=== PATIENT | female | born 1995 | race Caucasian/White ===

== ENCOUNTER → 2018-10-27 | Outpatient (CLI) | payer MEDICAID ==
--- NOTE | 2018-10-27 19:11 | Diagnostic Imaging Report ---
INDICATION: Low back pain. EXAMINATION: Lumbar spine. FINDINGS: AP and lateral views of the lumbar spine show normal vertebral body height and alignment. Disc spaces are normal. IMPRESSION: Negative lumbar spine. Dictated by: Dictated on workstation # [id number]
== END ==
LOC: RAD FS 16:24
PROVIDERS: ATTEND Family Medicine
DX: M54.5 Low back pain (principal)
CPT/HCPCS: 72100

== ENCOUNTER 2020-05-13 08:54 | Emergency (ER) | payer MEDICAID, OTHER ==
--- NOTE | 2020-05-13 08:56 | ED General ---
General Stated Complaint: LWR BACK PAIN; N/V Source of Information: Patient History of Present Illness Date Seen by Provider: May 13, 2020 Time Seen by Provider: 08:56 Initial Comments Patient is a 24-year-old female who comes to the emergency department complaining of right lower back pain. She's had symptoms over the last 2-3 days. She did not have any inciting event or traumatic injury. No recent strenuous activity. Pain is located over the right side of the low back. No numbness or tingling down the legs. No weakness. No radiation of pain symptoms. Pain is worse when she moves and relieved by rest. No difficulties with elimination. Denies urinary symptoms. Her last menstrual cycle ended 4 days earlier. No recent fever. Allergies and Home Medications Allergies Coded Allergies: amoxicillin (Verified Allergy, Unknown, 05/13/20) codeine (Verified Allergy, Unknown, 05/13/20) Home Medications Cyclobenzaprine HCl 10 Mg Tablet, 10 MG PO TID Prescribed by: LUCIANA GUY on 05/13/20916 Ibuprofen 800 Mg Tablet, 800 MG PO Q8H PRN for PAIN-MILD Prescribed by: LUCIANA GUY on 05/13/20916 Nitrofurantoin Monohyd/M-Cryst 100 Mg Capsule, 1 TAB PO BID Prescribed by: LUCIANA GUY on 05/13/20 0939 Patient Home Medication List Home Medication List Reviewed: Yes Review of Systems Review of Systems Constitutional: no symptoms reported EENTM: no symptoms reported Respiratory: no symptoms reported Cardiovascular: no symptoms reported Gastrointestinal: no symptoms reported Musculoskeletal: see HPI, back pain Skin: no symptoms reported All Other Systems Reviewed Negative Unless Noted: Yes Physical Exam Vital Signs Vital Signs - First Documented 05/13/20 09:05 Temp 36.7 Pulse 129 Resp 16 B/P (MAP) 123/72 (89) Pulse Ox 99 O2 Delivery Room Air Capillary Refill : Height, Weight, BMI Height: '" Weight: lbs. oz. kg; BMI Method: General Appearance: No Apparent Distress, WD/WN Neck: Non Tender, Supple Respiratory: Lungs Clear, Normal Breath Sounds Cardiovascular: Regular Rate, Rhythm, No Murmur Back: Other (muscle spasm and tenderness to palpation over the right lumbar paraspinal muscles and lower thoracic paraspinal muscles, 5 over 5 motor strength bilateral lower extremities. 2 over 4 DTRs at Achilles level) Extremity: Normal Capillary Refill Neurologic/Psychiatric: Alert, Oriented x3 Skin: Normal Color Progress/Results/Core Measures Suspected Sepsis SIRS Temperature: Pulse: Respiratory Rate: Blood Pressure / Mean: Results/Orders Lab Results Laboratory Tests Test 05/13/20 09:00 Range/Units Urine Color YELLOW Urine Clarity CLOUDY Urine pH 6.0 5-9 Urine Specific [place] >1.030 1.016-1.022 Urine Protein 2+ H NEGATIVE Urine Glucose (UA) NEGATIVE NEGATIVE Urine Ketones NEGATIVE NEGATIVE Urine Nitrite POSITIVE H NEGATIVE Urine Bilirubin NEGATIVE NEGATIVE Urine Urobilinogen 1.0 < = 1.0 MG/DL Urine Leukocyte Esterase 1+ H NEGATIVE Urine RBC (Auto) 1+ H NEGATIVE Urine RBC 2-5 H /HPF Urine WBC >100 H /HPF Urine Squamous Epithelial Cells 2-5 /HPF Urine Crystals NONE /LPF Urine Bacteria MODERATE H /HPF Urine Casts NONE /LPF Urine Mucus SMALL H /LPF Urine Culture Indicated YES My Orders Orders - LUCIANA GUY DO Urinalysis (05/13/20 09:00) Hcg,Qualitative Urine (05/13/20 09:00) Urine Culture (05/13/20 09:00) Vital Signs/I&O 05/13/20 09:05 Temp 36.7 Pulse 129 Resp 16 B/P (MAP) 123/72 (89) Pulse Ox 99 O2 Delivery Room Air Capillary Refill : Progress Note : Time: 09:14 Progress Note Patient is evaluated on arrival to her room. She has strain of the right lumbar back. No red flags are present in her history of present illness or with her physical examination. Today, we will check urinalysis and urine . 09:40: Prior to discharge from the ER, the patient's urinalysis did return with nitrite positive urinary tract infection. This was explained to her. She does not have fever. She denies urinary symptoms. She is placed on Macrobid. She is given some Flexeril and Motrin for treatment of her pain symptoms at home. Return precautions discussed and she will come back to the ER if she develops any new or worsening symptoms. Departure Impression Primary Impression: Lumbar spine strain Additional Impression: Urinary tract infection Disposition: 01 HOME, SELF-CARE Condition: Improved Departure-Patient Inst. Scripts Nitrofurantoin Monohyd/M-Cryst (Macrobid 100 mg Capsule) 100 Mg Capsule 1 TAB PO BID for 7 Days, #14 TAB Prov: LUCIANA GUY DO 05/13/20 Ibuprofen (Ibuprofen) 800 Mg Tablet 800 MG PO Q8H PRN for PAIN-MILD, #21 TAB Prov: LUCIANA GUY DO 05/13/20 Cyclobenzaprine HCl (Cyclobenzaprine HCl) 10 Mg Tablet 10 MG PO TID for Muscle Spasms, #21 TAB Prov: LUCIANA GUY DO 05/13/20 LUCIANA GUY DO May 13, 2020 08:56
[2020-05-13 09:05] VITALS: BP 123/72
[2020-05-13] MEDS ORDERED: CYCL10TA9 PO (09:17)
[2020-05-13] MEDS ORDERED: IBUP-1780 PO (09:17)
[2020-05-13 09:27] LABS: BACTERIA,URINE MODERATE /HPF; BILIRUBIN,URINE NEGATIVE (NEGATIVE); CLARITY,URINE CLOUDY; COLOR,URINE YELLOW; GLUCOSE, URINE (UA) NEGATIVE (NEGATIVE); KETONES,URINE NEGATIVE (NEGATIVE); LEUKOCYTE ESTERASE ,URINE 1+ (NEGATIVE); NITRITE,URINE POSITIVE (NEGATIVE); PROTEIN,URINE 2+ (NEGATIVE); WBC,URINE >100 /HPF
[2020-05-13] MEDS ORDERED: NITR-65 PO (09:39)
== END 2020-05-13 09:33 | disposition home or self-care (01) ==
LOC: EDUNIT# 08:54 → ER FS 08:56
DX: S39.012A Strain of muscle, fascia and tendon of lower back, initial encounter (principal); N39.0 Urinary tract infection, site not specified; Z88.1 Allergy status to other antibiotic agents; Z88.5 Allergy status to narcotic agent; X58.XXXA Exposure to other specified factors, initial encounter
CPT/HCPCS: 81000; 84703; 87077; 87088; 99281

== ENCOUNTER 2021-03-06 14:09 | Emergency (ER) | payer MEDICAID ==
[~2021-03-06] VITALS: Ht 167.7 cm; Wt 90.9 kg
[~2021-03-06 14:09] MED LIST: CYCL10TA9 PO; IBUP-1780 PO; NITR-65 PO
--- NOTE | 2021-03-06 15:14 | ED GI ---
General Chief Complaint: OB > 20 WEEKS Stated Complaint: ABD/BACK PAIN 17 WKS PREG Nursing Triage Note: AMB TO ED IS 17 WEEKS PREG ONSET OF LOW ABD PAIN AND BACK THIS AM. TALKED TO DR ROPER OFFICE AROUND 10AM WAS TOLD BY NURSE TO DRINK WATER AND RELAX . PATIENT REPORTS NOT HELPING. DENIES ANY UTI SYMPTOMS. Source of Information: Patient Exam Limitations: No Limitations History of Present Illness Date Seen by Provider: Mar 06, 2021 Time Seen by Provider: 15:13 Initial Comments To ER by private vehicle with reports of being 17 weeks G4, P3. She developed some lower abdominal and low back pain today. The pain persists. No fevers chills or dysuria. No nausea or vomiting no dysuria no vaginal bleeding. Timing/Duration: 1-2 Days Severity/Quality: Moderate Location: Suprapubic Radiation: No Radiation Activities at Onset: None Associated Symptoms: Denies Symptoms Allergies and Home Medications Allergies Coded Allergies: amoxicillin (Verified Allergy, Unknown, 05/13/20) codeine (Verified Allergy, Unknown, 05/13/20) Home Medications Cefuroxime Axetil 500 Mg Tablet, 500 MG PO BID Prescribed by: ALF LÓPEZ on 03/06/21 1610 Cyclobenzaprine HCl 10 Mg Tablet, 10 MG PO TID Prescribed by: LUCIANA GUY on 05/13/20 0917 Ibuprofen 800 Mg Tablet, 800 MG PO Q8H PRN for PAIN-MILD Prescribed by: LUCIANA GUY on 05/13/20 0917 Nitrofurantoin Monohyd/M-Cryst 100 Mg Capsule, 1 TAB PO BID Prescribed by: LUCIANA GUY on 05/13/20 0939 Patient Home Medication List Home Medication List Reviewed: Yes Review of Systems Review of Systems Constitutional: see HPI EENTM: No Symptoms Reported Respiratory: No Symptoms Reported Cardiovascular: No Symptoms Reported Gastrointestinal: See HPI, Abdominal Pain Genitourinary: No Symptoms Reported Musculoskeletal: no symptoms reported Skin: no symptoms reported Psychiatric/Neurological: No Symptoms Reported Endocrine: No Symptoms Reported Hematologic/Lymphatic: No Symptoms Reported Past Boukdon-Kklhos-Qbxnvk Hx Patient Social History Tobacco Use?: Yes Tobacco type used: Cigarettes Pt feels they are or have been: No Immunizations Up To Date First/Initial COVID19 Vaccinat: NONE Seasonal Allergies Seasonal Allergies: No Past Medical History Surgeries: No Respiratory: Yes (Possible Asthma) Neurological: No Expected Date of Delivery: Oct 07, 2021 Genitourinary: No Gastrointestinal: No Musculoskeletal: No Endocrine: No HEENT: No Cancer: No Psychosocial: No Integumentary: No Blood Disorders: No Physical Exam Vital Signs Vital Signs - First Documented 03/06/21 14:14 Temp 36.2 Pulse 86 Resp 18 B/P (MAP) 105/89 (94) Pulse Ox 99 Capillary Refill : Less Than 3 Seconds Height/Weight/BMI Height: '" Weight: lbs. oz. kg; 32.00 BMI Method: General Appearance: WD/WN, no apparent distress Respiratory: no respiratory distress Gastrointestinal: normal bowel sounds, soft, tenderness (Suprapubic) Extremities: normal range of motion, non-tender Neurologic/Psychiatric: alert, normal mood/affect, oriented x 3 Skin: normal color, warm/dry Progress/Results/Core Measures Results/Orders Lab Results Laboratory Tests Test 03/06/21 15:43 Range/Units Urine Color YELLOW Urine Clarity CLEAR Urine pH 6.0 5-9 Urine Specific [place] <=1.005 1.016-1.022 Urine Protein NEGATIVE NEGATIVE Urine Glucose (UA) NEGATIVE NEGATIVE Urine Ketones NEGATIVE NEGATIVE Urine Nitrite NEGATIVE NEGATIVE Urine Bilirubin NEGATIVE NEGATIVE Urine Urobilinogen 0.2 < = 1.0 MG/DL Urine Leukocyte Esterase 2+ H NEGATIVE Urine RBC (Auto) NEGATIVE NEGATIVE Urine RBC NONE /HPF Urine WBC 10-25 H /HPF Urine Crystals PRESENT H /LPF Urine Amorphous Sediment FEW JACKIE URATES H /LPF Urine Bacteria TRACE /HPF Urine Casts NONE /LPF Urine Mucus SMALL H /LPF Urine Culture Indicated YES My Orders Orders - ALF LÓPEZ [employer] Cbc With Automated Diff (03/06/21 14:48) Abo Rh Type (03/06/21 14:48) Ua Culture If Indicated (03/06/21 14:48) Us Ob Preg Late(14-40wks)[id number] (03/06/21 14:48) Urine Culture (03/06/21 15:43) Cefdinir Capsule (Omnicef Capsule) (03/06/21 16:15) Vital Signs/I&O 03/06/21 14:14 Temp 36.2 Pulse 86 Resp 18 B/P (MAP) 105/89 (94) Pulse Ox 99 Blood Pressure Mean: 94 Departure Communication (Admissions) NAME: ESTRELLA SAUNDERS [facility] REC#: [id number] PT STATUS: REG ER : 1995 PHYSICIAN: ALF LÓPEZ APRN ADMIT DATE: 03/06/21/ER Draft Date of Exam:03/06/21 US OB PREG LATE(14-40WKS)[id number] INDICATION: Lower abdominal pain, . TECHNIQUE: Multiple real-time grayscale images were obtained over the gravid uterus. COMPARISON: None. FINDINGS: Single live intrauterine is identified with a heart rate of 146 BPM. The fetus is in cephalic presentation. The lower uterine segment, cervix, and vaginal canal appear grossly unremarkable. The cervical length is 3 cm. No funneling identified. The placenta is posterior and has normal appearance. The amniotic fluid volume is normal. The facial structures and right ventricular outflow tract were poorly visualized. The remainder of the visualized anatomy is normal. Biometrical measurements are as follows: Biparietal 3.88 cm, age 17 weeks 6 days. Head circumference 14.63 cm, age 17 weeks 6 days. Abdominal circumference 11.79 cm, age 17 weeks 4 days. Femur length 2.58 cm, age 17 weeks 6 days. Sonographic estimate age: 17 weeks 6 days. Sonographic estimated date of delivery: 08/08/2021. Estimated Weight: 205 gm (+/- 30 gm). LMP percentile: 34%. heart rate: 146 beats per minute. number: 1 of 1. IMPRESSION: 1. Single live intrauterine at 17 weeks 6 days with a due date of 08/08/2021. 2. Breech presentation likely making anatomic evaluation difficult. Follow-up recommended. 3. No placental previa or funneling identified. Dictated on workstation # [id number] Dict: 03/06/21 1609 Trans: 03/06/21 1615 [id number] Interpreted by: TOOTIE LOONEY Electronically signed by: Andrew Primary Impression: Urinary tract infection Disposition: 01 HOME, SELF-CARE Condition: Stable Departure-Patient Inst. Decision time for Depature: 16:08 Referrals: CAITY CUEVAS MD (PCP/Family) Primary Care Physician Patient Instructions: Urinary Tract Infections in Adults Add. Discharge Instructions: Antibiotics as directed 2. Return to ER for any concerns 3. Follow-up with your matrix drier tender later next week for recheck. All discharge instructions reviewed with patient and/or family. Voiced understanding. Scripts Cefuroxime Axetil (Cefuroxime) 500 Mg Tablet 500 MG PO BID, #10 TAB Prov: ALF LÓPEZ APRN 03/06/21 ALF LÓPEZ APRN Mar 06, 2021 15:14
[2021-03-06 15:48] LABS: BILIRUBIN,URINE NEGATIVE (NEGATIVE); CLARITY,URINE CLEAR; COLOR,URINE YELLOW; GLUCOSE, URINE (UA) NEGATIVE (NEGATIVE); KETONES,URINE NEGATIVE (NEGATIVE); LEUKOCYTE ESTERASE ,URINE 2+ (NEGATIVE); NITRITE,URINE NEGATIVE (NEGATIVE); PROTEIN,URINE NEGATIVE (NEGATIVE)
[2021-03-06 16:03] LABS: AMORPHOUS SEDIMENT,UR FEW AMOR URATES /LPF; BACTERIA,URINE TRACE /HPF
[2021-03-06] MEDS ORDERED: CEFU500T63 PO (16:10)
[2021-03-06] MEDS ORDERED: CEFDINIR 300 MG (OMNICEF) CAP PO ONE (16:15)
--- NOTE | 2021-03-06 16:16 | Diagnostic Imaging Report ---
INDICATION: Lower abdominal pain, . TECHNIQUE: Multiple real-time grayscale images were obtained over the gravid uterus. COMPARISON: None. FINDINGS: Single live intrauterine is identified with a heart rate of 146 BPM. The fetus is in cephalic presentation. The lower uterine segment, cervix, and vaginal canal appear grossly unremarkable. The cervical length is 3 cm. No funneling identified. The placenta is posterior and has normal appearance. The amniotic fluid volume is normal. The facial structures and right ventricular outflow tract were poorly visualized. The remainder of the visualized anatomy is normal. Biometrical measurements are as follows: Biparietal 3.88 cm, age 17 weeks 6 days. Head circumference 14.63 cm, age 17 weeks 6 days. Abdominal circumference 11.79 cm, age 17 weeks 4 days. Femur length 2.58 cm, age 17 weeks 6 days. Sonographic estimate age: 17 weeks 6 days. Sonographic estimated date of delivery: 08/08/2021. Estimated Weight: 205 gm (+/- 30 gm). LMP percentile: 34%. heart rate: 146 beats per minute. number: 1 of 1. IMPRESSION: 1. Single live intrauterine at 17 weeks 6 days with a due date of 08/08/2021. 2. Breech presentation likely making anatomic evaluation difficult. Follow-up recommended. 3. No placental previa or funneling identified. Dictated by: Dictated on workstation # [id number]
[2021-03-06 16:32] LABS: BASOPHILS % (AUTO) 0 % (0-10); EOSINOPHILS # (AUTO) 0.1 10^3/uL (0.0-0.3); EOSINOPHILS % (AUTO) 1 % (0-10); HEMATOCRIT 39 % (35-52); HEMOGLOBIN 12.8 g/dL (11.5-16.0); LYMPHOCYTES # (AUTO) 1.9 X 10^3 (1.0-4.0); LYMPHOCYTES % (AUTO) 17 % (12-44); MEAN CORPUSCULAR HEMOGLOBIN 31 pg (25-34); MEAN CORPUSCULAR HGB CONC 33 g/dL (32-36); MEAN CORPUSCULAR VOLUME 94 fL (80-99); MEAN PLATELET VOLUME 12.8 fL (9.0-12.2); MONOCYTES # (AUTO) 0.4 X 10^3 (0.0-1.0); MONOCYTES % (AUTO) 4 % (0-12); NEUTROPHILS # (AUTO) 8.5 X 10^3 (1.8-7.8); NEUTROPHILS % (AUTO) 78 % (42-75); PLATELET COUNT 161 10^3/uL (130-400); WHITE BLOOD COUNT 10.9 10^3/uL (4.3-11.0)
[2021-03-06 16:43] VITALS: BP 105/89
== END 2021-03-06 16:43 | disposition home or self-care (01) ==
LOC: EDUNIT# 14:09 → ER 14:11
DX: O23.42 Unspecified infection of urinary tract in pregnancy, second trimester (principal); Z3A.17 17 weeks gestation of pregnancy
CPT/HCPCS: 36415; 76805; 81000; 85025; 86900; 86901; 87088; 99283

== ENCOUNTER → 2021-03-24 | Outpatient (CLI) | payer MEDICAID ==
[~2021-03-24] MED LIST changes: +CEFU500T63 PO
--- NOTE | 2021-03-24 14:19 | Diagnostic Imaging Report ---
INDICATION: screening TECHNIQUE: Multiple real-time grayscale images were obtained over the gravid uterus. COMPARISON: None FINDINGS: There is a Alba viable IUP. The measurements correlate with an age 20 week 5 day sonographic date of delivery 08/06/2021. The LMP percentile is 50% with heart rate regular at 165 bpm. The biometric measurements are congruent. Amniotic fluid volume within normal limits. Positioning is cephalic. No pathological finding at the anatomical survey. Biometrical measurements are as follows: Biparietal 4.74 cm, age 20 weeks 3 days. Head circumference 17.99 cm, age 20 weeks 3 days. Abdominal circumference 15.10 cm, age 20 weeks 3 days. Femur length 3.63 cm, age 21 weeks 4 days. Sonographic estimate age: 20 weeks 5 days. Sonographic estimated date of delivery: 08/06/2021. Estimated Weight: 379 gm (+/- 55 gm). LMP percentile: 50%. heart rate: 165 beats per minute. number: 1 of 1. IMPRESSION: Alba viable IUP measures 20 weeks 5 days with no pathological finding identified. Dictated by: Dictated on workstation # [id number]
== END ==
LOC: RAD 13:00
PROVIDERS: ATTEND Obstetrics & Gynecology
DX: Z36.9 Encounter for antenatal screening, unspecified (principal); Z3A.20 20 weeks gestation of pregnancy
CPT/HCPCS: 76805

== ENCOUNTER 2021-07-24 11:43 | Inpatient (IN) | payer MEDICAID ==
[~2021-07-24] VITALS: Ht 167.7 cm; Wt 101.8 kg
[2021-07-24] VITALS (12 sets, daily range): BP systolic 99–123; BP diastolic 55–78
[~2021-07-24 11:43] MED LIST changes: +CYCL10TA25 PO; -CYCL10TA9 PO
[2021-07-24] MEDS ORDERED: D5 LR IV SOLUTION 1,000 ML IV SCH (13:00)
[2021-07-24] MEDS ORDERED: MINERAL OIL CONCENTRATE 99.9% 15 ML UDC TOP PRN (13:00)
[2021-07-24 13:25] LABS: BASOPHILS % (AUTO) 0 % (0-10); EOSINOPHILS # (AUTO) 0.1 10^3/uL (0.0-0.3); EOSINOPHILS % (AUTO) 1 % (0-10); HEMATOCRIT 36 % (35-52); HEMOGLOBIN 12.4 g/dL (11.5-16.0); LYMPHOCYTES % (AUTO) 20 % (12-44); MEAN CORPUSCULAR HEMOGLOBIN 33 pg (25-34); MEAN CORPUSCULAR HGB CONC 34 g/dL (32-36); MEAN CORPUSCULAR VOLUME 97 fL (80-99); MEAN PLATELET VOLUME 12.6 fL (9.0-12.2); MONOCYTES # (AUTO) 0.5 10^3/uL (0.0-1.0); MONOCYTES % (AUTO) 5 % (0-12); NEUTROPHILS # (AUTO) 7.5 10^3/uL (1.8-7.8); NEUTROPHILS % (AUTO) 74 % (42-75); PLATELET COUNT 195 10^3/uL (130-400); WHITE BLOOD COUNT 10.1 10^3/uL (4.3-11.0)
--- NOTE | 2021-07-24 13:34 | History & Physical-OB ---
OB - Chief Complaint & HPI Date/Time Date of Admission: Date of Admission: Jul 24, 2021 at 12:52 Date seen by a Provider: Jul 24, 2021 Time Seen by a Provider: 13:30 Chief Complaint/History OB-Reason for Admission/Chief: Onset of Labor Allergies and Home Medications Allergies Coded Allergies: amoxicillin (Verified Allergy, Unknown, 05/13/20) codeine (Verified Allergy, Unknown, 05/13/20) Patient Home Medication List Discontinued Medications Cefuroxime Axetil (Cefuroxime) 500 Mg Tablet, 500 MG PO BID Discontinued Reason: No Longer Taking Prescribed by: ALF LÓPEZ on 03/06/21 1610 Last Action: Discontinued Cyclobenzaprine HCl (Cyclobenzaprine HCl) 10 Mg Tablet, 10 MG PO TID Discontinued Reason: No Longer Taking Prescribed by: LUCIANA GUY on 05/13/20916 Last Action: Discontinued Ibuprofen (Ibuprofen) 800 Mg Tablet, 800 MG PO Q8H PRN for PAIN-MILD Discontinued Reason: No Longer Taking Prescribed by: LUCIANA GUY on 05/13/20916 Last Action: Discontinued Nitrofurantoin Monohyd/M-Cryst (Macrobid 100 mg Capsule) 100 Mg Capsule, 1 TAB PO BID Discontinued Reason: No Longer Taking Prescribed by: LUCIANA GUY on 05/13/20 0939 Last Action: Discontinued OB - History Social History/Family History 2nd Hand Smoke Exposure: No OB - Admission Exam Labs Laboratory Tests Test 07/24/21 12:30 Range/Units White Blood Count 10.1 4.3-11.0 10^3/uL Red Blood Count 3.74 L 3.80-5.11 10^6/uL Hemoglobin 12.4 11.5-16.0 g/dL Hematocrit 36 35-52 % Mean Corpuscular Volume 97 80-99 fL Mean Corpuscular Hemoglobin 33 25-34 pg Mean Corpuscular Hemoglobin Concent 34 32-36 g/dL Red Cell Distribution Width 13.8 10.0-14.5 % Platelet Count 195 130-400 10^3/uL Mean Platelet Volume 12.6 H 9.0-12.2 fL Immature Granulocyte % (Auto) 0 % Neutrophils (%) (Auto) 74 42-75 % Lymphocytes (%) (Auto) 20 12-44 % Monocytes (%) (Auto) 5 0-12 % Eosinophils (%) (Auto) 1 0-10 % Basophils (%) (Auto) 0 0-10 % Neutrophils # (Auto) 7.5 1.8-7.8 10^3/uL Lymphocytes # (Auto) 2.0 1.0-4.0 10^3/uL Monocytes # (Auto) 0.5 0.0-1.0 10^3/uL Eosinophils # (Auto) 0.1 0.0-0.3 10^3/uL Basophils # (Auto) 0.0 0.0-0.1 10^3/uL Immature Granulocyte # (Auto) 0.0 0.0-0.1 10^3/uL JOVANNY ROPER DO Jul 24, 2021 13:34
[2021-07-24] MEDS ORDERED: CATHETER FLUSH 10 ML SYR IV SCH ×2 (14:00→22:00)
[2021-07-24] MEDS ORDERED: OXYTOCIN PRE-MIX DRIP 500 ML IV ONE (14:06)
[2021-07-24] MEDS ORDERED: LIDOCAINE 1% INJ 20 ML 20 ML VIAL ONE (14:21)
[2021-07-24] MEDS: OXYTOCIN PRE-MIX DRIP 500 ML IV SCH ×2 (14:38→15:15)
[2021-07-24] MEDS ORDERED: NALOXONE 0.4 MG/ML 1 ML (NARCAN) VIAL IV PRN (14:45)
[2021-07-24] MEDS ORDERED: TETANUS,DIPTH,PERTUSS P/F (BOOSTRIX) 0.5 ML VIAL IM ONE (14:45)
[2021-07-24] MEDS ORDERED: BENZOCAINE/MENTHOL (DERMOPLAST) 56 ML CAN TP PRN (14:45)
[2021-07-24] MEDS ORDERED: WITCH HAZEL(TUCKS) 40 EA JAR TOP PRN (14:45)
[2021-07-24] MEDS ORDERED: MEASLES,MUMPS,RUBELLA 1 EA INJ SQ ONE (14:45)
[2021-07-24] MEDS ORDERED: DIBUCAINE 1% OINTMENT 30 GM TUBE TOP PRN (14:45)
--- NOTE | 2021-07-24 14:47 | OB Labor & Delivery Record ---
Vag Delivery Note Vag Delivery Note Date of Delivery: 07/24/21 Preoperative Diagnosis: Kayla Pearl is a (25 /Para / , Gestational Age (wks)with [] Postoperative Diagnosis: Same Surgeon: JOVANNY ROPER Anesthesia: none Delivery Type: vaginal Findings: Viable female , apgars 8/9, weight 5#12 ounces Lacerations: none Intact placenta with 3 vessel cord. No nuchal cord, body cord or shoulder dystocia Cytotec 800 mcg placed for hemorrhage prophylaxis Estimated Blood Loss: 150 ml Complications: None Condition: Stable Description of Procedure: The patient is a 25 year old female who presented in active labor. She was admitted and informed consent was obtained. Her labor course was remarkable for AROM and the rapid progression to complete dilation. She progressed to complete dilatation and began to push. She was then set up for delivery. The infant's head was delivered atraumatically in the MESERET position. The shoulders and remainder of the 's body were then delivered without difficulty. Upon delivery, the head was held below the level of the perineum and the mouth and nares were bulb suctioned. The cord was doubly clamped and cut and the infant was handed off to the pediatric staff. An intact placenta with 3-vessel cord delivered via Selin and there was found to be minimal bleeding.~ Vigorous fundal massage was performed and the fundus was found to be firm. IV oxytocin was given. Examination of the vagina and perineum revealed no laceration. Following the delivery, sponge, instrument and needle counts were correct. Mom and baby were both in stable condition in the labor suite. Vitals - Labs Labs Laboratory Tests 07/24/21 12:30: White Blood Count 10.1, Red Blood Count 3.74L, Hemoglobin 12.4, Hematocrit 36, Mean Corpuscular Volume 97, Mean Corpuscular Hemoglobin 33, Mean Corpuscular Hemoglobin Concent 34, Red Cell Distribution Width 13.8, Platelet Count 195, Mean Platelet Volume 12.6H, Immature Granulocyte % (Auto) 0, Neutrophils (%) (Auto) 74, Lymphocytes (%) (Auto) 20, Monocytes (%) (Auto) 5, Eosinophils (%) (Auto) 1, Basophils (%) (Auto) 0, Neutrophils # (Auto) 7.5, Lymphocytes # (Auto) 2.0, Monocytes # (Auto) 0.5, Eosinophils # (Auto) 0.1, Basophils # (Auto) 0.0, Immature Granulocyte # (Auto) 0.0 JOVANNY ROPER DO Jul 24, 2021 14:47
[2021-07-24] MEDS: IBUPROFEN 600 MG (MOTRIN) TAB PO SCH (18:04)
[2021-07-24] MEDS: DOCUSATE SODIUM 100 MG (COLACE) CAP PO SCH (20:47)
[2021-07-24] MEDS: ACETAMINOPHEN 500 MG TAB (TYLENOL) PO SCH (20:47)
[2021-07-25 01:00] VITALS: BP 107/56
[2021-07-25] MEDS: IBUPROFEN 600 MG (MOTRIN) TAB PO SCH ×3 (01:08→13:21)
[2021-07-25 05:11] VITALS: BP 90/55
[2021-07-25] MEDS: ACETAMINOPHEN 500 MG TAB (TYLENOL) PO SCH ×2 (05:11→13:22)
[2021-07-25 06:17] LABS: BASOPHILS % (AUTO) 0 % (0-10); EOSINOPHILS # (AUTO) 0.1 10^3/uL (0.0-0.3); EOSINOPHILS % (AUTO) 1 % (0-10); HEMATOCRIT 35 % (35-52); HEMOGLOBIN 11.3 g/dL (11.5-16.0); LYMPHOCYTES % (AUTO) 30 % (12-44); MEAN CORPUSCULAR HEMOGLOBIN 32 pg (25-34); MEAN CORPUSCULAR HGB CONC 32 g/dL (32-36); MEAN CORPUSCULAR VOLUME 99 fL (80-99); MEAN PLATELET VOLUME 12.1 fL (9.0-12.2); MONOCYTES # (AUTO) 0.4 10^3/uL (0.0-1.0); MONOCYTES % (AUTO) 4 % (0-12); NEUTROPHILS # (AUTO) 6.4 10^3/uL (1.8-7.8); NEUTROPHILS % (AUTO) 64 % (42-75); PLATELET COUNT 173 10^3/uL (130-400)
[2021-07-25 08:32] VITALS: BP 87/53
[2021-07-25] MEDS: DOCUSATE SODIUM 100 MG (COLACE) CAP PO SCH (08:32)
--- NOTE | 2021-07-25 08:48 | Postpartum Progress Note ---
Note Note Day # 1 s/p Subjective: Patient is without complaints. Ambulating, voiding. Tolerating a regular diet w ithout nausea or vomiting. Normal lochia. Pain is well controlled with oral pain medications. [] feeding. [] Objective: 07/25/21 07/25/21 07/25/21 01:00 05:11 08:32 Temp 36.4 36.0 36.3 Pulse 66 55 54 Resp 18 18 18 B/P (MAP) 107/56 (73) 90/55 (67) 87/53 (64) Pulse Ox 100 99 O2 Delivery Room Air Room Air Room Air 07/25/21 00:00 Intake Total 500 ml Balance 500 ml Laboratory Tests Test 07/24/21 12:30 07/25/21 06:02 Range/Units White Blood Count 10.1 10.0 4.3-11.0 10^3/uL Red Blood Count 3.74 L 3.54 L 3.80-5.11 10^6/uL Hemoglobin 12.4 11.3 L 11.5-16.0 g/dL Hematocrit 36 35 35-52 % Mean Corpuscular Volume 97 99 80-99 fL Mean Corpuscular Hemoglobin 33 32 25-34 pg Mean Corpuscular Hemoglobin Concent 34 32 32-36 g/dL Red Cell Distribution Width 13.8 13.8 10.0-14.5 % Platelet Count 195 173 130-400 10^3/uL Mean Platelet Volume 12.6 H 12.1 9.0-12.2 fL Immature Granulocyte % (Auto) 0 0 % Neutrophils (%) (Auto) 74 64 42-75 % Lymphocytes (%) (Auto) 20 30 12-44 % Monocytes (%) (Auto) 5 4 0-12 % Eosinophils (%) (Auto) 1 1 0-10 % Basophils (%) (Auto) 0 0 0-10 % Neutrophils # (Auto) 7.5 6.4 1.8-7.8 10^3/uL Lymphocytes # (Auto) 2.0 3.0 1.0-4.0 10^3/uL Monocytes # (Auto) 0.5 0.4 0.0-1.0 10^3/uL Eosinophils # (Auto) 0.1 0.1 0.0-0.3 10^3/uL Basophils # (Auto) 0.0 0.0 0.0-0.1 10^3/uL Immature Granulocyte # (Auto) 0.0 0.0 0.0-0.1 10^3/uL Physical Exam: General - Alert and oriented, no apparent distress Abdomen - Soft, appropriately tender to palpation, non-distended, fundus firm at umbilicus Extremities - no edema, negative Sherita's bilaterally [] Assessment: [] post- day # [], status post [] vaginal delivery. Recovering well, hemodynamically stable [] Plan: Routine care. Encourage breast feeding. Encourage ambulation. Ferrous sulfate supplementation. Plan for discharge [] Vitals - Labs Vital Signs - I&O Vital Signs Date Time Temp Pulse Resp B/P (MAP) Pulse Ox O2 Delivery O2 Flow Rate FiO2 07/25/21 08:32 36.3 54 18 87/53 (64) 99 Room Air 07/25/21 05:11 36.0 55 18 90/55 (67) Room Air 07/25/21 01:00 36.4 66 18 107/56 (73) 100 Room Air 07/24/21 20:47 36.1 61 18 99/59 (72) 100 Room Air 07/24/21 16:52 70 18 106/55 (72) Room Air 07/24/21 16:45 67 18 122/58 (79) Room Air 07/24/21 16:22 36.4 57 18 111/74 (86) Room Air 07/24/21 16:07 72 18 110/70 (83) Room Air 07/24/21 15:52 59 18 112/73 (86) Room Air 07/24/21 15:37 84 18 109/60 (76) Room Air 07/24/21 15:22 36.3 76 18 113/60 (77) Room Air 07/24/21 15:07 36.3 90 18 114/59 (77) Room Air 07/24/21 14:52 35.6 83 18 107/78 (88) Room Air 07/24/21 14:28 84 20 123/78 (93) Room Air 07/24/21 14:14 35.1 07/24/21 12:06 98 18 111/78 (89) 97 Room Air I & O 07/25/21 07:00 Intake Total 500 ml Balance 500 ml Labs Laboratory Tests 07/24/21 12:30: White Blood Count 10.1, Red Blood Count 3.74L, Hemoglobin 12.4, Hematocrit 36, Mean Corpuscular Volume 97, Mean Corpuscular Hemoglobin 33, Mean Corpuscular Hemoglobin Concent 34, Red Cell Distribution Width 13.8, Platelet Count 195, Mean Platelet Volume 12.6H, Immature Granulocyte % (Auto) 0, Neutrophils (%) (Auto) 74, Lymphocytes (%) (Auto) 20, Monocytes (%) (Auto) 5, Eosinophils (%) (Auto) 1, Basophils (%) (Auto) 0, Neutrophils # (Auto) 7.5, Lymphocytes # (Auto) 2.0, Monocytes # (Auto) 0.5, Eosinophils # (Auto) 0.1, Basophils # (Auto) 0.0, Immature Granulocyte # (Auto) 0.0 07/25/21 06:02: White Blood Count 10.0, Red Blood Count 3.54L, Hemoglobin 11.3L, Hematocrit 35, Mean Corpuscular Volume 99, Mean Corpuscular Hemoglobin 32, Mean Corpuscular Hemoglobin Concent 32, Red Cell Distribution Width 13.8, Platelet Count 173, Mean Platelet Volume 12.1, Immature Granulocyte % (Auto) 0, Neutrophils (%) (Auto) 64, Lymphocytes (%) (Auto) 30, Monocytes (%) (Auto) 4, Eosinophils (%) (Auto) 1, Basophils (%) (Auto) 0, Neutrophils # (Auto) 6.4, Lymphocytes # (Auto) 3.0, Monocytes # (Auto) 0.4, Eosinophils # (Auto) 0.1, Basophils # (Auto) 0.0, Immature Granulocyte # (Auto) 0.0 JOVANNY ROPER DO Jul 25, 2021 08:48
[2021-07-25] MEDS ORDERED: WTCHGPD TOP (11:26)
[2021-07-25] MEDS ORDERED: ACET-93 PO (11:26)
[2021-07-25] MEDS ORDERED: IBUP-844 PO (11:26)
[2021-07-25] MEDS ORDERED: DOCU100C37 PO (11:26)
[2021-07-25] MEDS ORDERED: DIBU30OI TOP (11:26)
--- NOTE | 2021-07-25 11:27 | Discharge Inst-Women's Service ---
Discharge Inst-Women's Serv Depart Medication/Instructions New, Converted or Re-Newed RX: Transmitted to Pharmacy Final Diagnosis vaginal delivery Problems Reviewed?: Yes Consults/Follow Up Additional Follow Up: Yes ([address] Yarbrough and Dr. Roper) Activity Activity: Activity as Tolerated Driving Instructions: You May Drive NO SMOKING: NO SMOKING Nothing Inside Vagina: No Douching, No [place], No Tampons Diet Discharge Diet: No Restrictions Symptoms to Report to : Bleeding Excessive, Pain Increased, Fever Over 101 Degrees F, Vaginal Bleeding Increase, Cramps in Feet or Legs, Vaginal Discharge Foul For Any Problems or Questions: Contact Your Physician JOVANNY ROPER DO Jul 25, 2021 11:27
[2021-07-25 11:53] VITALS: BP 87/53
[2021-07-25 13:22] VITALS: BP 110/68
== END 2021-07-25 17:20 | disposition home or self-care (01) | DRG 807 ==
LOC: WSo 11:43 → LDRP 11:46 → WSo 12:52 → LDRP 17:35
PROVIDERS: ADMIT Obstetrics & Gynecology; ATTEND Obstetrics & Gynecology
PROC: 10E0XZZ Delivery of Products of Conception, External Approach (ICD-10-PCS; principal; 2021-07-24)
PROC: 10907ZC Drainage of Amniotic Fluid, Therapeutic from Products of Conception, Via Natural or Artificial Opening (ICD-10-PCS; 2021-07-24)
DX: O80 Encounter for full-term uncomplicated delivery (principal); Z37.0 Single live birth; Z3A.38 38 weeks gestation of pregnancy
CPT/HCPCS: 36415; 85025; 86850; 86900; 86901; 99212

== ENCOUNTER 2021-09-10 05:41 | Outpatient (CLI) | payer MEDICAID ==
[~2021-09-10] VITALS: Ht 167.6 cm; Wt 94.8 kg
[~2021-09-10 05:41] MED LIST changes: +ACET-93 PO; +DIBU30OI TOP; +DOCU100C37 PO; +IBUP-844 PO; +WTCHGPD TOP
[2021-09-11] MEDS ORDERED: IBUP-1773 PO (16:22)
[2021-09-11] MEDS ORDERED: ACHD5005 PO (16:22)
== END 2021-09-11 09:47 | disposition home or self-care (01) ==
LOC: PREOP 05:41
PROVIDERS: ATTEND Surgery
DX: Z01.818 Encounter for other preprocedural examination (principal)

== ENCOUNTER 2021-09-17 07:00 | Day surgery (SDC) | payer MEDICAID ==
[~2021-09-17] VITALS: Ht 167 cm; Wt 94.8 kg
[2021-09-17] VITALS (12 sets, daily range): BP systolic 113–142; BP diastolic 73–93
[~2021-09-17 07:00] MED LIST changes: +ACHD5005 PO; +IBUP-1773 PO
[2021-09-17] MEDS ORDERED: LIDOCAINE/EPI 1%-1:200,000 (XYLOCAINE) 30 ML VIAL ONE (07:13)
[2021-09-17] MEDS ORDERED: CLINDAMYCIN 600 MG/50 ML IVPB 50 ML IV ONE (07:30)
[2021-09-17] MEDS: LACTATED RINGERS 1,000 ML IV PRN ×2 (07:48→08:50)
[2021-09-17] MEDS ORDERED: proPOfol 200 MG/20 ML (DIPRIVAN) VIAL IV ONE (07:59)
[2021-09-17] MEDS ORDERED: LIDOCAINE PF 2% 5 ML (XYLOCAINE) VIAL ONE (07:59)
[2021-09-17] MEDS ORDERED: ROCURONIUM 10 MG/ML 5 ML SYRINGE IV ONE (07:59)
[2021-09-17] MEDS ORDERED: NEOSTIGMINE 3 MG/3 ML VIAL ONE (07:59)
[2021-09-17] MEDS ORDERED: ONDANSETRON 4 MG/2 ML (SDV) Z0FRAN ONE (07:59)
[2021-09-17] MEDS ORDERED: GLYCOPYRROLATE 0.2 MG/ML (ROBINUL) 2 ML VIAL ONE (07:59)
[2021-09-17] MEDS ORDERED: MIDAZOLAM 2 MG/2 ML (VERSED) VIAL ONE (07:59)
[2021-09-17] MEDS ORDERED: fentaNYL INJ 100 MCG/2 ML AMP ONE (07:59)
--- NOTE | 2021-09-17 08:13 | Progress Note-Pre Operative ---
Pre-Operative Progress Note H&P Reviewed The H&P was reviewed, patient examined and no changes noted. Time Seen by Provider: 08:11 Date H&P Reviewed: Sep 17, 2021 Time H&P Reviewed: 08:11 Pre-Operative Diagnosis: Jacob/jacob MARILEE CARTER DO Sep 17, 2021 08:13
[2021-09-17] MEDS ORDERED: HYDROmorphone 2 MG/ML VIAL (DILAUDID) ONE (09:05)
[2021-09-17] MEDS ORDERED: SEVOFLURANE (ULTANE) 15 ML INHAL SOLN ONE (09:05)
--- NOTE | 2021-09-17 09:08 | Progress Note-Post Operative ---
Post-Operative Progess Note Surgeon (s)/Hunter Guide (s) Surgeon MARILEE CARTER DO Hunter Guide: Paulette Pre-Operative Diagnosis Nena/nena Post-Operative Diagnosis Same Procedure & Operative Findings Date of Procedure 09/17/21 Procedure Performed/Findings PROCEDURE: Laparoscopic cholecystectomy with intraoperative cholangiogram. COMPLICATIONS: None. PROCEDURE: The patient was taken to the operating suite and was prepped and draped in sterile fashion. A surgical pause was performed. Just superior to the umbilicus, a 12 mm incision was made. Dissection was taken down to the fascia, which was then scored and grasped with a Car and the abdomen was then entered. A 0 Vicryl suture was placed in a dnhnfx-wd-zzasa fashion and a Webb trocar was placed and secured. Pneumoperitoneum was achieved. A 5mm tro[address] place in the subxyphoid and 2 in the right upper quadrant. The gallbladder was noted to be a little red/injected; it was then grasped at the fundus and elevated. The other grasper pulled Melendez's pouch inferior and laterally. The cystic duct, and cystic artery were then dissected out. Clip was placed on the distal portion of the cystic duct which was then partially transected. An arrow catheter was inserted into the duct. The cholangiogram was then performed. No filing defects and contrast made its way into the duodenum. Catheter removed. Clips were placed on proximal portion of the cystic duct and then the duct was then transected. Clips were placed along the proximal and distal portion of the cystic artery which was then transected. Hook cautery was used to dissect the gallbladder from the gallbladder fossa achieving hemostasis. The gallbladder was placed in an Endobag and removed through the 12 mm trocar site. The abdomen was then reinspected. Copious amounts of irrigation were used to irrigate the abdomen and there were no signs of active bleeding. Hemostasis had been achieved. The 12 mm fascial defect was then closed with 0 Vicryl suture that had been placed in a elikoh-tc-lgban fashion. The abdomen was then desufflated, the trocars were removed. The abdomen was then washed and dried. The skin was then closed using 4-0 Monocryl in a subcuticular fashion. The abdomen was washed and dried and Skin Affix was place over incisions. Patient tolerated the procedure well without any complications and was taken to the recovery room in stable condition. Dr. Caldwell assisted on this case helping to make incisions, close incisions, identify anatomy and hold anatomy out of the way. Anesthesia Type GET Estimated Blood Loss Estimated blood loss (mL): scant Specimens/Packing Specimens Removed GB and contents MARILEE CARTER DO Sep 17, 2021 09:08
--- NOTE | 2021-09-17 09:10 | Discharge Inst-Surgical ---
Discharge Inst-Surgical Depart Medication/Instructions New, Converted or Re-Newed RX: Other (Use meds given by Dr. Chiu) Patient Instructions Follow up Appt: Make appointment for 1 week. [phone] Instructions: No lifting greater than 20 pounds. No strenuous activity. May shower in 24 hours, no tub bath or soaking. Use incentive spirometer at home as directed. No Smoking Skin/Wound Care: May remove bandages in am. You need to leave the Dermabond on incision it will fall off on it's own. Symptoms to Report: Appetite Changes, Extremity Discoloration, Numbness/Tingling, Swelling Increased, Bleeding Excessive, Eyesight Changes, Pain Increased, Urine Color Change, Constipation(Persistent), Fever over 101 degree F, Pain/Pressure in chest, Urinating Difficulty, Cough Up/Vomit Blood, Heart Beat Irreg/Pounding, Pain/Pressure in jaw, Cramps in feet or legs, Lightheadedness, Pain/Pressure in shoulder, Diarrhea(Persistent), Memory Changes Suddenly, Questions/Concerns, Weight gain consecutive days, Dizziness/Fainting, Nausea/Vomiting, Shortness of Breath, Weight gain over 2 pounds If questions or concerns contact your physician Or seek help at emergency department. Activity Activity as Tolerated: Yes Activity Instructions: Avoid Stress to Incision Driving Instructions: No Driving/Refer to Diet Discharge Diet: Avoid Fatty Foods, Low Fat/Low Cholesterol Diet After 24 Hours: Clear Liquid if Nauseous If Any Problems/Questions/Issu: Contact Your Physician, Go to Emergency Room Skin/Wound Care Infection Signs and Symptoms: Increased Redness, Foul Odor of Wound, Increased Drainage, Skin Itchy or Has a Rash, Increased Swelling, Temperature Above 101 F Wound Care Comment: heating pad to shoulder or neck tonight for pain Bathing Instructions: Shower Stitches/[place]/Dermabond Dis: Dermabond Ice Pack: Ice On and Off Site MARILEE CARTER DO Sep 17, 2021 09:10
[2021-09-17] MEDS ORDERED: RT-ALBUTEROL SULF 2.5 MG/3 ML PRE-MIX VIAL ONE (09:24)
[2021-09-17] MEDS ORDERED: morphine INJ 10 MG/ML 1ML (SYR OR VIAL) IVP ONE (09:30)
[2021-09-17] MEDS ORDERED: HYDROmorphone 2 MG/ML VIAL (DILAUDID) IV ONE (09:30)
[2021-09-17] MEDS ORDERED: ONDANSETRON 4 MG/2 ML (SDV) Z0FRAN IVP PRN (09:30)
[2021-09-17] MEDS ORDERED: RT-ALBUTEROL SULF 2.5 MG/3 ML PRE-MIX VIAL INH ONE (09:30)
[2021-09-17] MEDS ORDERED: HYDROcodone/APAP 5 MG/325 MG (LORTAB) TAB ONE (10:42)
[2021-09-17] MEDS ORDERED: HYDROcodone/APAP 5 MG/325 MG (LORTAB) TAB PO ONE (10:45)
--- NOTE | 2021-09-17 10:57 | Diagnostic Imaging Report ---
INDICATION: Fluoroscopy during intraoperative cholangiogram. Fluoroscopy was provided in the OR during intraoperative cholangiogram. 13 seconds of fluoroscopic time was utilized. 69 images were obtained demonstrating contrast being injected via the cystic duct remnant. Intrahepatic ducts are not opacified. Extrahepatic duct is normal caliber. There is flow of contrast into the duodenum. No filling defect is seen. IMPRESSION: Fluoroscopy during intraoperative cholangiogram. Dictated by: Dictated on workstation # [id number]
== END 2021-09-17 11:25 | disposition home or self-care (01) ==
LOC: SDC 07:00
PROVIDERS: ATTEND Surgery
DX: K80.10 Calculus of gallbladder with chronic cholecystitis without obstruction (principal); K21.9 Gastro-esophageal reflux disease without esophagitis; F17.210 Nicotine dependence, cigarettes, uncomplicated; Z79.899 Other long term (current) drug therapy
CPT/HCPCS: 76000; 84703; 87081; 88304